=== PATIENT | male | born 1980 | race Two or more races ===

== ENCOUNTER 2020-09-21 00:43 | Emergency (ER) | payer MEDICAID ==
[~2020-09-21] VITALS: Ht 154.9 cm; Wt 64.5 kg
[2020-09-21] MEDS ORDERED: ketorolac trometh. 30mg/ml inj. IV ONE (00:55)
[2020-09-21] MEDS ORDERED: LORazepam 2 mg/ml vial IV ONE (00:55)
[2020-09-21 01:14] LABS: BASOPHILS # (AUTO) 0.1 X10'3 (0-0.2); BASOPHILS % (AUTO) 0.5 % (0-1); EOSINOPHILS # (AUTO) 0.2 X10'3 (0-0.9); EOSINOPHILS % (AUTO) 1.4 % (0-6); HEMOGLOBIN 16.6 g/dl (14.0-17.9); LYMPHOCYTES # (AUTO) 2.8 X10'3 (1.1-4.8); MEAN CORPUSCULAR HEMOGLOBIN 31.3 PG (27.0-31.0); MEAN CORPUSCULAR HGB CONC 34.5 g/dL (33.0-36.5); MEAN CORPUSCULAR VOLUME 90.8 FL (78-98); MEAN PLATELET VOLUME 10.4 FL (7.4-10.4); MONOCYTES # (AUTO) 1.3 X10'3 (0-0.9); MONOCYTES % (AUTO) 10.2 % (2-12); NEUTROPHILS % (AUTO) 64.9 % (42-75); PLATELET COUNT 218 X10'3 (140-440); RED BLOOD COUNT 5.28 X10'6 (4.70-6.10); RED CELL DISTRIBUTION WIDTH 12.9 % (11.5-14.5); WHITE BLOOD COUNT 12.3 X10'3 (4.5-11.0)
[2020-09-21 01:15] LABS: ALANINE AMINOTRANSFERASE 35 U/L (12-78); ALBUMIN 3.7 G/DL (3.4-5.0); ALBUMIN/GLOBULIN RATIO 0.8 (1.1-1.5); ALKALINE PHOSPHATASE 124 IU/L (46-116); ANION GAP 9 (8-16); ASPARTATE AMINO TRANSFERASE 28 U/L (10-37); BILIRUBIN,TOTAL 0.6 MG/DL (0.1-1.0); BLOOD UREA NITROGEN 16 MG/DL (7-18); CALCIUM 8.9 MG/DL (8.5-10.1); CHLORIDE 102 MMOL/L (99-107); CREATININE 0.84 MG/DL (0.60-1.10); GLUCOSE 155 MG/DL (70-104); POTASSIUM 3.8 MMOL/L (3.5-5.1); SODIUM 138 MMOL/L (135-145); TOTAL CARBON DIOXIDE 26.9 MMOL/L (24-32); TOTAL PROTEIN 8.3 G/DL (6.4-8.2); eGFR > 90 ML/MIN
--- NOTE | 2020-09-21 01:22 | NUR ---
FATHER, TARIK, NOW AT BEDSIDE. PT IS CALMER. BP NOW 151/111, DENIES ANY CP. AWAITING LAB RESULTS.
[2020-09-21 01:49] VITALS: BP 148/71
== END 2020-09-21 01:51 | disposition home or self-care (01) ==
LOC: ER 00:43
DX: R09.1 Pleurisy (principal); R07.2 Precordial pain; R62.50 Unspecified lack of expected normal physiological development in childhood; Z56.0 Unemployment, unspecified
CPT/HCPCS: 36415; 71045; 80053; 83880; 84484; 85025; 93005; 96374; 96375; 99285; J1885; J2060